=== PATIENT | female | born 1955 | race Caucasian/White ===

== ENCOUNTER → 2023-11-11 10:43 | Outpatient (REF) | payer MEDICARE, OTHER, SELFPAY ==
[2023-11-11 11:30] LABS: % Basophils 0.9 % (0-2); % Eosinophils 2.5 % (0-6); % Immature Granulocytes 0.2 % (0-0.5); % Monocytes 7.6 % (1.7-9.3); % Neutrophils 66.8 % (42.2-75.2); Absolute Eosinophils 0.1 10^3/uL (0-0.7); Absolute Monocytes 0.3 10^3/uL (0.1-0.6); Hematocrit 39.2 % (37.0-47.0); Hemoglobin 13.8 g/dL (12.0-16.0); Mean Corp Hgb Conc. 35.2 g/dL (33.0-37.0); Mean Corpuscular Hgb 31.7 pg (27.0-31.0); Mean Corpuscular Volume 90.1 fL (81.0-99.0); Mean Platelet Volume 9.6 fL (7.4-10.4); Nucleated Red Blood Cells % 0 %; Platelet Count 216 10^3/uL (130-400); Red Blood Cell Count 4.35 10^6/uL (4.20-5.40); Red Cell Dist. Width 12.9 % (11.5-14.5); White Blood Cell Count 4.5 10^3/uL (4.8-10.8)
[2023-11-11 12:23] LABS: Glycohemoglobin (HgbA1c) 5.6 % (4.0-5.6)
[2023-11-11 12:36] LABS: Free T4 0.85 ng/dl (0.78-2.19)
[2023-11-11 12:50] LABS: TSH 2.61 uIU/ml (0.47-4.68)
[2023-11-11 13:05] LABS: ALT (SGPT) 16 U/L (0-35); AST (SGOT) 25 U/L (14-36); Albumin 4.5 g/dl (3.5-5.0); Alkaline Phosphatase 74 U/L (38-126); Blood Urea Nitrogen 17 mg/dl (7-17); Calcium 9.9 mg/dl (8.4-10.2); Carbon Dioxide 28 mmol/L (22-30); Chloride 103 mmol/L (98-107); Glucose 80 mg/dl (70-99); HDL Cholesterol 70 mg/dl; LDL Cholesterol, Calculated 80 mg/dl; Potassium 4.2 mmol/L (3.5-5.1); Sodium 137 mmol/L (135-145); Total Bilirubin 0.7 mg/dl (0.2-1.3); Total Cholesterol 172 mg/dl (50-199); Total Protein 7.4 g/dl (6.3-8.2); Triglyceride 110 mg/dl (10-149); Uric Acid 3.2 mg/dl (2.5-6.2); Very Low Density Lipoprotein 22 mg/dl (0-30); eGFR > 60.00
[2023-11-14 02:15] LABS: Cardiolipin IgA Antibody <10 APL (<=11); Cardiolipin IgM Antibody <10 MPL (<=12); Cardiolipin Igg Antibody <10 GPL (<=14)
== END ==
LOC: REG 10:43
PROVIDERS: ATTENDING PHYSICIAN Internal Medicine; FAMILY PHYSICIAN Family Medicine
DX: E78.2 Mixed hyperlipidemia (principal); F32.5 Major depressive disorder, single episode, in full remission; G43.909 Migraine, unspecified, not intractable, without status migrainosus; R73.03 Prediabetes; R79.82 Elevated C-reactive protein (CRP)
CPT/HCPCS: 36415; 80053; 80061; 83036; 84439; 84443; 84550; 85025; 86147

== ENCOUNTER → 2024-04-03 14:11 | Outpatient (REF) | payer MEDICARE, OTHER, SELFPAY | LOC: WDC 14:11 | PROVIDERS: ATTENDING PHYSICIAN Nurse Practitioner Acute Care; FAMILY PHYSICIAN Family Medicine | DX: Z12.31 Encounter for screening mammogram for malignant neoplasm of breast (principal) | CPT/HCPCS: 77063; 77067 ==

== ENCOUNTER → 2024-10-23 11:21 | Outpatient (REF) | payer MEDICARE, OTHER, SELFPAY | LOC: HWRCS 11:21 | PROVIDERS: ATTENDING PHYSICIAN Internal Medicine Cardiovascular Disease; FAMILY PHYSICIAN Family Medicine | DX: I44.7 Left bundle-branch block, unspecified (principal); R07.89 Other chest pain; R06.09 Other forms of dyspnea | CPT/HCPCS: 78452; 93017; A9500; J2785 ==

== ENCOUNTER → 2024-10-26 10:57 | Outpatient (REF) | payer MEDICARE, OTHER, SELFPAY | LOC: HWRCS 10:57 | PROVIDERS: ATTENDING PHYSICIAN Internal Medicine Cardiovascular Disease; FAMILY PHYSICIAN Family Medicine | DX: I44.7 Left bundle-branch block, unspecified (principal); R07.89 Other chest pain; R06.09 Other forms of dyspnea | CPT/HCPCS: 93306 ==

== ENCOUNTER 2024-11-19 07:50 | Day surgery (SDC) | payer MEDICARE, OTHER, SELFPAY ==
--- NOTE | 2024-10-15 13:07 | PTCARENOTE ---
Patients 10/29 ECG abnormal- Letitia @ Dr. Watt office notified
[2024-10-15 13:58] LABS: Hematocrit 40.4 % (37.0-47.0); Hemoglobin 13.8 g/dL (12.0-16.0); Mean Corp Hgb Conc. 34.2 g/dL (33.0-37.0); Mean Corpuscular Hgb 30.9 pg (27.0-31.0); Mean Corpuscular Volume 90.4 fL (81.0-99.0); Platelet Count 206 10^3/uL (130-400); Red Blood Cell Count 4.47 10^6/uL (4.20-5.40); Red Cell Dist. Width 12.6 % (11.5-14.5); White Blood Cell Count 6.2 10^3/uL (4.8-10.8)
[2024-10-15 14:11] VITALS: BMI 29.6
[2024-10-15 14:24] LABS: Glycohemoglobin (HgbA1c) 5.5 % (4.0-5.6)
[2024-10-15 14:27] LABS: ALT (SGPT) 16 U/L (0-35); AST (SGOT) 23 U/L (14-36); Albumin 4.6 g/dl (3.5-5.0); Alkaline Phosphatase 72 U/L (38-126); Blood Urea Nitrogen 13 mg/dl (7-17); Calcium 9.3 mg/dl (8.4-10.2); Carbon Dioxide 30 mmol/L (22-30); Chloride 101 mmol/L (98-107); Estimated Creatinine Clearance 84 ml/min; Glucose 102 mg/dl (70-99); Potassium 4.2 mmol/L (3.5-5.1); Sodium 138 mmol/L (135-145); Total Bilirubin 0.5 mg/dl (0.2-1.3); eGFR > 60.00
--- NOTE | 2024-10-16 11:25 | VNURNOTE ---
Addendum entered by Yesika Levine RN 11/09/24 09:34:
L TKA re-scheduled to 11/19 [facility]. Spoke with patient, reinforced that [facility] and PT will see her at home day of surgery. She has Rehab outpt PT rescheduled for 'either Th or 11/22 or 11/23' Patient will call today to confirm start date. Referral
[facility].
Original Note:
Patient is scheduled for an elective L TKA on 10/29/24- She is a same day patient with Dr Watt. Spoke with patient prior to surgery. Introduced role of [facility] Liaison. Patient reports that she lives with his in a MULTI story home.
There are 2 steps to enter and a flight of steps to the second floor.
There is a powder room on the machine sole leveler. She has a cane and rolling walker.
Her spouse had VN services recently after prior knee replacement.
PCP is Dr Mahajan
Discussed [facility] joint protocol and post surgical plans.
Reviewed that she will have VN services initially and will then start outpatient PT.
Patient selects [facility] for her home care needs and will go to '[facility] in [place]' for outpatient PT. Scheduled for 11/01.
Patient is in agreement with plan and states that her spouse will be home with her. Advised to bring RW day of surgery. Referral placed in [facility].
Plan: [facility] per [facility] joint protocol 10/29 then outpt PT on 11/01
[2024-11-09 12:41] VITALS: BMI 29.6
[2024-11-19] VITALS (13 sets, daily range): BP systolic 132–167; BP diastolic 72–97; PULSE 90; O2SAT 96
--- NOTE | 2024-11-19 07:53 | W.DS.TRANS ---
DC Summary - Core Filer
-
Discharge Instructions:
Sleep Apnea Risk Low
Discharge Diagnosis/Procedures L TKA 11/19/24
Diet As tolerated
Activity With Walker
Driving Restrictions No driving
Bathing Restrictions OK to Shower
Other Services PT
Instructions:
Stand-Alone Forms: SDS Total Hip and Knee D/C
Changes to Home Medications: Yes
Discharge Medications:
DC Medications w/original date entered in [facility]
atorvastatin 10 mg tablet 10 mg PO DAILY 06/03/22
alendronate 70 mg tablet (Fosamax) 70 mg PO TU 11/05/24
escitalopram oxalate 20 mg tablet 20 mg PO DAILY 11/05/24
diphenhydramine HCl 25 mg tablet (Sleep Aid (diphenhydramine)) 25 mg PO HS PRN sleep 11/07/24
famotidine 20 mg tablet (Pepcid) 20 mg PO HS #30 tabs 11/07/24
acetaminophen 325 mg tablet (Tylenol) 650 mg (2 x 325 mg) PO QID #1 tab 11/19/24
aspirin 325 mg tablet 325 mg PO DAILY blood clot prevention #1 tab 11/19/24
celecoxib 100 mg capsule 100 mg PO BID Anti-inflammatory #14 caps 11/19/24
dexamethasone 4 mg tablet 4 mg PO BID inflammation #6 tabs 11/19/24
docusate sodium 100 mg capsule (Colace) 100 mg PO BID stool softner #1 cap 11/19/24
magnesium hydroxide 400 mg/5 mL oral suspension (Milk of Magnesia) 30 ml PO HS PRN Constipation #1 mL 11/19/24
mupirocin 2 % topical ointment 1 applic topical BID 11/19/24
ondansetron 4 mg disintegrating tablet 4 mg PO Q6H PRN n/v #20 tabs 11/19/24
oxycodone 5 mg tablet 5 mg PO Q6H PRN 1 tab moderate pain, 2 tabs severe pain #30 tabs 11/19/24
sennosides 8.6 mg tablet (Senokot) 17.2 mg (2 x 8.6 mg) PO BID laxative #2 tabs 11/19/24
Home Medication Changes
acetaminophen 325 mg tablet (Tylenol) 650 mg (2 x 325 mg) PO QID #1 tab 11/19/24
aspirin 325 mg tablet 325 mg PO DAILY blood clot prevention #1 tab 11/19/24
celecoxib 100 mg capsule 100 mg PO BID Anti-inflammatory #14 caps 11/19/24
dexamethasone 4 mg tablet 4 mg PO BID inflammation #6 tabs 11/19/24
docusate sodium 100 mg capsule (Colace) 100 mg PO BID stool softner #1 cap 11/19/24
magnesium hydroxide 400 mg/5 mL oral suspension (Milk of Magnesia) 30 ml PO HS PRN Constipation #1 mL 11/19/24
mupirocin 2 % topical ointment 1 applic topical BID 11/19/24
ondansetron 4 mg disintegrating tablet 4 mg PO Q6H PRN n/v #20 tabs 11/19/24
oxycodone 5 mg tablet 5 mg PO Q6H PRN 1 tab moderate pain, 2 tabs severe pain #30 tabs 11/19/24
sennosides 8.6 mg tablet (Senokot) 17.2 mg (2 x 8.6 mg) PO BID laxative #2 tabs 11/19/24
Pending Results: No
[2024-11-19] MEDS: CELEBREX 200 MG PO (07:54)
[2024-11-19] MEDS: NORMOSOL-R/PLASMALYTE-A 1000 IV (07:54)
[2024-11-19] MEDS: TYLENOL 650 MG PO (07:54)
[2024-11-19] MEDS: DILAUDID 0.25 MG IV (12:40)
[2024-11-19] MEDS: ROXICODONE 5 MG PO (13:24)
[2024-11-19] MEDS: ANCEF 5 IV (13:34)
[2024-11-19] MEDS: ZOFRAN 4 MG IV (13:48)
== END 2024-11-19 15:16 | disposition home or self-care (01) ==
LOC: SDS 07:50
PROVIDERS: ATTENDING PHYSICIAN Specialist; FAMILY PHYSICIAN Family Medicine
DX: M17.12 Unilateral primary osteoarthritis, left knee (principal); M51.369 Other intervertebral disc degeneration, lumbar region without mention of lumbar back pain or lower extremity pain; M81.0 Age-related osteoporosis without current pathological fracture; Z87.891 Personal history of nicotine dependence
CPT/HCPCS: 27447; 36415; 73560; 80053; 83036; 85027; 87070; 93005; 97116; 97162; C1713; C1776

== ENCOUNTER → 2025-04-08 10:56 | Outpatient (REF) | payer MEDICARE, OTHER, SELFPAY ==
[2025-04-08 12:14] LABS: Urine Character Clear (Clear)
== END ==
LOC: WDC 10:56
PROVIDERS: ATTENDING PHYSICIAN Family Medicine; FAMILY PHYSICIAN Physician Assistant
DX: Z12.31 Encounter for screening mammogram for malignant neoplasm of breast (principal)
CPT/HCPCS: 77063; 77067; 81003

== ENCOUNTER → 2025-05-24 12:02 | Outpatient (REF) | payer MEDICARE, OTHER, SELFPAY ==
[2025-05-24 12:53] LABS: Hematocrit 39.8 % (37.0-47.0); Hemoglobin 13.9 g/dL (12.0-16.0); Mean Corp Hgb Conc. 34.9 g/dL (33.0-37.0); Mean Corpuscular Volume 89.2 fL (81.0-99.0); Nucleated Red Blood Cells % 0 %; Platelet Count 202 10^3/uL (130-400); Red Cell Dist. Width 12.9 % (11.5-14.5)
[2025-05-24 13:18] LABS: ALT (SGPT) 17 U/L (0-35); AST (SGOT) 21 U/L (14-36); Albumin 4.5 g/dl (3.5-5.0); Alkaline Phosphatase 61 U/L (38-126); Blood Urea Nitrogen 15 mg/dl (7-17); C-Reactive Protein 9.20 mg/L (0.0-10.00); Calcium 9.7 mg/dl (8.4-10.2); Carbon Dioxide 28 mmol/L (22-30); Chloride 107 mmol/L (98-107); Glucose 95 mg/dl (70-99); HDL Cholesterol 68 mg/dl; LDL Cholesterol, Calculated 92 mg/dl; Potassium 4.5 mmol/L (3.5-5.1); Sodium 141 mmol/L (135-145); Total Protein 7.1 g/dl (6.3-8.2); Very Low Density Lipoprotein 17 mg/dl (0-30); eGFR > 60.00
[2025-05-24 13:48] LABS: TSH 4.54 uIU/ml (0.47-4.68)
[2025-05-24 14:04] LABS: Glycohemoglobin (HgbA1c) 5.1 % (4.0-5.6)
== END ==
LOC: REG 12:02
PROVIDERS: ATTENDING PHYSICIAN Nurse Practitioner Family; FAMILY PHYSICIAN Family Medicine
DX: E78.2 Mixed hyperlipidemia (principal); R73.03 Prediabetes; R53.83 Other fatigue; R79.82 Elevated C-reactive protein (CRP); E88.810 Metabolic syndrome; E78.00 Pure hypercholesterolemia, unspecified; E78.1 Pure hyperglyceridemia; E03.9 Hypothyroidism, unspecified; R63.5 Abnormal weight gain; Z68.32 Body mass index [BMI] 32.0-32.9, adult; R73.9 Hyperglycemia, unspecified
CPT/HCPCS: 36415; 80053; 80061; 83036; 83525; 84439; 84443; 85025; 86140